=== PATIENT | female | born 1995 | race Caucasian/White ===

== ENCOUNTER 2016-09-27 20:14 | Emergency (ER) | payer SELFPAY ==
--- NOTE | 2016-09-27 22:08 | RADIOLOGY REPORT ---
HISTORY: Left elbow injury COMPARISON: None. FINDINGS: 3 views of the elbow obtained. There is no fracture. There is no lytic or sclerotic lesion. Normal alignment and mineralization are demonstrated. There is no elevated anterior or posterior fat pad. IMPRESSION: Unremarkable elbow x-rays. Final Electronic Signature: This report was electronically signed by Seun Shah MD on 09/27/2016 10 :06 PM. [email or web address] /
--- NOTE | 2016-09-27 22:25 | ER PHYSICIAN DOCUMENTATION ---
Physician Documentation [facility] ([place], [place]) Name:Mishel Bro Age:21 yrs Sex:Female :1995 Arrival Date:09/27/2016 Time:20:14 Bed1 Private MD: Toribio Bermudez Disposition: 09/27/16 22:06 Discharged to Home/Self Care. Impression: Ulnar Nerve Injury, Forearm Level. - Condition is Good. - Discharge Instructions: Neuropathies, Ulnar - ULNAR NERVE PALSY. - Work release form, Medical Reconciliation form form. - Follow up: Private Physician; When: 1 week; Reason: Recheck today's complaints. - Problem is new. - Symptoms are unchanged. HPI: 09/27 21:56 This 21 yrs old Female presents to ER via Walk In with complaints of Arm Pain sc - LEFT ELBOW TO FINGERTIPS. 21:56 The patient or guardian complains of injury, pain, that is acute. The complaints affect sc the left elbow, left wrist, left hand and palmar aspect of left forearm. Context: The problem was sustained at work, resulted from a direct blow, by a solid object. Onset: The symptom(s)/episode began/occurred 2 hour(s) ago. Treatment prior to arrival includes: no previous treatment. Associated signs and symptoms: Pertinent positives: decreased range of motion, pain, tingling. Severity of symptoms: in the emergency department the symptoms are unchanged. Historical: - Allergies: No known drug Allergies; - Tetanus: < 10 years. - Ebola Screening: : Patient negative for fever greater than or equal to 101.5 degrees Fahrenheit, and additional compatible Ebola Virus Disease symptoms. Patient denies exposure to infectious person. Patient denies travel to an Ebola-affected area in the 21 days before illness onset. No symptoms or risks identified at this time. . - Immunization history: Flu Vaccine < 1 year. - Social history: Smoking status: Patient states was never smoker of tobacco. ROS: 21:57 Constitutional: Negative for fever, chills, and weight loss. sc Eyes: Negative for injury, pain, redness, and discharge. Neck: Negative for injury, pain, and swelling. Cardiovascular: Negative for chest pain, palpitations, and edema. Respiratory: Negative for shortness of breath, cough, wheezing, and pleuritic chest pain. Abdomen/GI: Negative for abdominal pain, nausea, vomiting, diarrhea, and constipation. Back: Negative for injury and pain. Skin: Negative for injury, rash, and discoloration. 21:57 Neuro: Negative for headache, weakness, numbness, tingling, and seizure. sc 21:57 MS/extremity: Positive for injury or acute deformity, pain, paresthesias. Exam: Constitutional: This is a well developed, well nourished patient who is awake, alert, and in no acute distress. Head/Face: Normocephalic, atraumatic. Neck: Trachea midline, no thyromegaly or masses palpated, and no cervical lymphadenopathy. Supple, full range of motion without nuchal rigidity, or vertebral point tenderness. No meningismus. Chest/axilla: Normal chest wall appearance and motion. Nontender with no deformity. No lesions are appreciated. Cardiovascular: Regular rate and rhythm with a normal S1 and S2. No gallops, murmurs, or rubs. Normal PMI, no JVD. No pulse deficits. Respiratory: Lungs have equal breath sounds bilaterally, clear to auscultation and percussion. No rales, rhonchi or wheezes noted. No increased work of breathing, no retractions or nasal flaring. 21:57 Back: No spinal tenderness. No costovertebral tenderness. Full range of motion. sc 21:57 Musculoskeletal/extremity: Extremities: grossly normal except: pain, swelling, ROM: limited active range of motion due to pain, limited passive range of motion due to pain, Circulation is intact in all extremities. Tingling of extremity. Vital Signs: 20:40 BP 140 / 113; Pulse 81; Resp 16; Temp 98.2; Pulse Ox 95% ; Weight 63.5 kg; Height 5 ft. jt 4 in. (162.56 cm); Pain 3/10; 22:23 BP 133 / 91; Pulse 70; Resp 16; Pain 3/10; lb 20:40 Body Mass Index 24.03 (63.50 kg, 162.56 cm) jt MDM: 20:37 Patient medically screened. sc 21:58 Differential diagnosis: closed fracture, contusion. Data reviewed: vital signs, nurses sc notes, radiologic studies, plain films, and as a result, I will continue to observe the patient. Counseling: I had a detailed discussion with the patient and/or guardian regarding: the historical points, exam findings, and any diagnostic results supporting the discharge/admit diagnosis, radiology results, the need for outpatient follow up. 09/27 22:11 Order name: ELBOW;[place] [id number] EDMS 09/27 22:06 Order name: ORTHO: Ice Pack; Complete Time: 22:07 ga 09/27 22:06 Order name: ORTHO: Shoulder Immobilizer; Complete Time: 22:08 ga Dispensed Medications: 22:23 Drug: HYDROcodone-acetaminophen (5mg/325 mg) 1-2 tabs 1 tabs; Route: PO; lb 22:23 Follow up: Response: Pharmacy closed - take home med pack lb Signatures: Toribio Loyola MD MD ga Inna Somers [facility] Maria Isabel Kruger lb
--- NOTE | 2016-09-27 22:25 | ER NURSING DOCUMENTATION ---
Nurse's Notes [facility] Name:Mishel Bro Age:21 yrs Sex:Female :1995 Arrival Date:09/27/2016 Time:20:14 Bed1 Private MD: Diagnosis:Ulnar Nerve Injury, Forearm Level Presentation: 09/27 20:43 Presenting complaint: Patient states: she hot left elbow on corner. pt states she had bw2 shooting pain down elbow to finger tips. pt states she is still having pain. Transition of care: patient was not received from another setting of care. 20:43 Method Of Arrival: Walk In bw2 20:43 Acuity: ALTA 3 bw2 Triage Assessment: 20:45 General: Appears in no apparent distress, Behavior is anxious, appropriate for age. bw2 Pain: Complains of pain in left elbow Pain radiates to to fingers. Historical: - Allergies: No known drug Allergies; - Tetanus: < 10 years. - Ebola Screening: : Patient negative for fever greater than or equal to 101.5 degrees Fahrenheit, and additional compatible Ebola Virus Disease symptoms. Patient denies exposure to infectious person. Patient denies travel to an Ebola-affected area in the 21 days before illness onset. No symptoms or risks identified at this time. . - Immunization history: Flu Vaccine < 1 year. - Social history: Smoking status: Patient states was never smoker of tobacco. Screenin:46 Infectious Disease Risk None. Abuse screen: Denies threats or abuse. Nutritional bw2 screening: No deficits noted. Assessment: 20:45 See Triage Assessment done by same RN. bw2 Vital Signs: 20:40 BP 140 / 113; Pulse 81; Resp 16; Temp 98.2; Pulse Ox 95% ; Weight 63.5 kg; Height 5 ft. jt 4 in. (162.56 cm); Pain 3/10; 22:23 BP 133 / 91; Pulse 70; Resp 16; Pain 3/10; lb 20:40 Body Mass Index 24.03 (63.50 kg, 162.56 cm) jt ED Course: 20:23 Patient arrived in ED. jt 20:37 Toribio Loyola MD is Attending Physician. me 20:43 Inna Somers is Primary Nurse. bw2 20:44 Triage completed. bw2 20:46 Valuables Remains with patient Side rails up X2. bw2 21:38 Port Xray Completed. mr Administered Medications: 22:23 Drug: HYDROcodone-acetaminophen (5mg/325 mg) 1-2 tabs 1 tabs; Route: PO; 22:23 Follow up: Response: Pharmacy closed - take home med pack Outcome: 22:06 Discharge ordered by . ludy 22:23 Discharged to [facility] 22:23 Condition: good 22:23 Discharge Assessment: Patient awake, alert and oriented x 3. No cognitive and/or functional deficits noted. Patient verbalized understanding of disposition instructions. 22:23 Instructed on discharge instructions, follow up and referral plans. no drinking with medication, no driving heavy equipment. 22:24 Patient left the ED. 09/28 10:41 Discharge F/U Call: Unable to reach: non-working number st Signatures: Rosa Thomas, RN RN Toribio Antonio MD MD sc Tennant, Apurva Somers, Inna bw2 Maria Isabel Kruger ReddAlec june mr
== END 2016-09-27 22:25 | disposition home or self-care (01) ==
LOC: ER 20:14
DX: S54.02XA Injury of ulnar nerve at forearm level, left arm, initial encounter (principal); W22.8XXA Striking against or struck by other objects, initial encounter
CPT/HCPCS: 99283